=== PATIENT | male | born 1935 | race Caucasian/White ===

== ENCOUNTER 2024-04-16 17:51 | Emergency (ER) | payer OTHER, SELFPAY ==
[2024-04-16 17:52] VITALS: BMI 31.7
[2024-04-16 17:53] VITALS: BP 118/73
[2024-04-16] MEDS: NEO-SYNEPHRINE 0.5% NASAL SPRAY 2 SPRAY NASAL (20:40)
[2024-04-16 20:43] VITALS: BP 110/68
--- NOTE | 2024-04-16 21:09 | ED.GENMED ---
History of Present Illness
General
Chief Complaint: Nose Bleed
Source: patient and family
Exam Limitations: none
Time Seen by Provider: 04/16/24 20:10
Nursing documentation reviewed up to this point in time: agreed with
Travel History
Have you had any contact with someone who has COVID-19?: No
Do you have any symptoms of coronavirus? Fever > 100 degrees, chills, cough, shortness of breath, sore throat, loss of taste or smell, muscle aches, or headache?: No
History of Present Illness
History of Present Illness:
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
spontaneous nosebleed 1 hour [employer]
stopped for EMS with clamps
spontaenosuly from R nostril
dry air at home
no headache, bleeding from anywhere else, no clots
has been here clamped for a significant time and no bleeding
never had nose bleed before
does not sound like significant volume loss
Past History
Past History
ED Past Medical History: Other (bph)
Social History
Tobacco: Non-smoker
Alcohol: None
Personal:
Review of Systems
Review of Systems
Allergies reviewed?: Yes
All Other Systems: Not applicable
Phy Exam
Physical Exam
Physical Exam:
GENERAL: Alert , in no apparent distress
EYE: pupils equal and reactive
ENT: o/p clr, mmm.
right nostril anterior some dried blood but no clots; no posterior signs of bleeding
no blood in posterior pharynx
SKIN: Warm and dry, skin intact.
PSYCH: Normal and appropriate interaction.
Course
Orders/Labs/Results
Orders:
Orders
04/16/24 20:38
Oxymetazoline HCl [Afrin Nasal [place]] 30 sprays .ROUTE .STK-MED ONE
Phenylephrine 0.5% Regular Spr [Elijah-Synephrine 0.5% Nasal [place]] 1 spray .ROUTE .STK-MED ONE
04/16/24 20:40
Phenylephrine 0.5% Regular Spr [Elijah-Synephrine 0.5% Nasal [place]] 2 spray NASAL NOW STA
Vital Signs
Initial and Last Documented VS:
Initial Vital Signs
Temp Pulse Resp BP Pulse Ox
97.5 F 99 19 118/73 95
04/16/24 17:53 04/16/24 17:53 04/16/24 17:53 04/16/24 17:53 04/16/24 17:53
Last Documented Vital Signs
Temp Pulse Resp BP Pulse Ox
97.5 F 84 19 123/85 98
04/16/24 17:53 04/16/24 22:10 04/16/24 17:53 04/16/24 22:10 04/16/24 20:43
Procedures
Nosebleed
Drug treatment: Lidocaine and Neosynephrine
Treatment: local pressure applied and other (anterior balloon)
Post treatment bleeding: none- good control
MDM/Problems Addressed
Differential Diagnosis Includes:
epistaxis
MDM/Problems Addressed:
89 y/o M recently started anticoagulans after cardiac surgeries
here with sontaneous nosebleed right nostril
controlled with clamps from ems
stable vitals
well appearing
no significant blood loss
initially nothing to cauterize
neosynephrine in both nostrils and reassessed after observation
no bleeding
was leno to d/c home and then pt went to use the bathroom and started dripping right notstril
soaked cotton ball with lidocaine and then used rhinorocket 5.5
no bleeding
d/c home
*Critical Care Note
Total Time (30-74mins, 75-104mins- exclusive of procedures): Not Applicable
ED Attending Note
-
Portions of this chart may have been created with voice recognition software.� Occasional wrong word or��sound alike� substitutions may have occurred due to the inherent limitations of voice recognition software.
Discharge Plan
Departure
Patient Disposition: Home (Routine Discharge)
Date of Disposition: 04/16/24
Time of Disposition: 21:09
Patient with high blood pressure during this ER visit?: No
Condition: Fair
Covid-19: Not Applicable
Discharge Problem:
Acute anterior epistaxis
Instructions: Nosebleeds (DC)
Prescriptions:
No Action
hydrocodone-acetaminophen 5-325 mg tablet
1 tab PO Q8H PRN (Reason: Pain) Qty: 10 0RF
prednisone 20 mg tablet
20 mg PO BID 4 Days Qty: 8 0RF
Referrals:
Donavan Marte MD [Family Provider] - Follow up in 2-3 days
Chris Wills MD [Active] - Follow up in 5-7 days (ent)
Activity Restrictions/Additional Instructions:
Keep the packing in place for 2 days. You can return on Saturday or Saturday and have the packing removed. If you start bleeding with the packing in place please come into the ER. You can hold your Eliquis tonight and restart it tomorrow.
Return for fever, pain, bleeding, etc.
You may need to see an ear nose and throat doctor. Please call for an appointment
Interventions
Interventions:
*Risk Screen - Suicide Last Done: 04/16/24 17:53
*General Assessment Last Done: 04/16/24 17:53
*Neglect/Abuse Screening Last Done: 04/16/24 17:53
*Nursing Disposition Last Done: 04/16/24 22:10
ED-EENT Assessment Last Done: 04/16/24 18:41
Discharge Date and Time
Discharge Date/Time: 04/16/24 22:11
Print Language: CROATIAN
[2024-04-16 22:10] VITALS: BP 123/85
== END 2024-04-16 22:11 | disposition home or self-care (01) ==
LOC: EMR 17:51
PROVIDERS: EMERGENCY PHYSICIAN Emergency Medicine; FAMILY PHYSICIAN Family Medicine
DX: R04.0 Epistaxis (principal); N40.0 Benign prostatic hyperplasia without lower urinary tract symptoms; Z79.01 Long term (current) use of anticoagulants
CPT/HCPCS: 99282; 30901

== ENCOUNTER 2024-04-18 11:44 | Emergency (ER) | payer OTHER, SELFPAY ==
[2024-04-18 11:51] VITALS: BP 126/88
--- NOTE | 2024-04-18 13:55 | ED.GENMED ---
History of Present Illness
<Amina Sanchez PA-C - Last Filed: 04/18/24 21:20>
General
Chief Complaint: Nose Bleed
Source: patient
Exam Limitations: none
Time Seen by Provider: 04/18/24 13:29
Nursing documentation reviewed up to this point in time: agreed with
Travel History
Have you had any contact with someone who has COVID-19?: No
Do you have any symptoms of coronavirus? Fever > 100 degrees, chills, cough, shortness of breath, sore throat, loss of taste or smell, muscle aches, or headache?: No
History of Present Illness
History of Present Illness:
Patient is a 89 year old male presenting for removal of nasal packing. Patient was seen in our emergency department 2 days ago with a nosebleed where anterior nasal packing was placed. Patient was instructed to discontinue Eliquis for 1 day and
then resume. Patient presents today to remove packing.
Patient is not noticed any bleeding since packing was placed. He denies any fever, chills, headache.
Past History
<Amina Sanchez PA-C - Last Filed: 04/18/24 21:20>
Past History
ED Past Medical History: Other (bph)
Social History
Tobacco: Non-smoker
Alcohol: None
Personal:
Review of Systems
<Amina Sanchez PA-C - Last Filed: 04/18/24 21:20>
Review of Systems
Allergies reviewed?: Yes
All Other Systems: ROS reviewed and negative except as documented in HPI and ROS
Phy Exam
<Amina Sanchez PA-C - Last Filed: 04/18/24 21:20>
Physical Exam
Physical Exam:
Vitals: Patient's vital signs are stable. Afebrile
General: Patient is well appearing, no acute distress
Skin: Warm and dry, no rashes or lesions
Head: Normocephalic, atraumatic
Eyes: Sclera nonicteric. EOMs intact. No nystagmus.
Nose: Anterior nasal packing in place in right nares. No obvious active bleeding. No significant dried blood bilaterally. Left nares clear without any signs of bleeding.
Throat: Protecting airway. No blood in posterior pharynx. Uvula midline
Neck: Normal ROM, no cervical spine tenderness, no meningismus
Cardiac: Regular rate and rhythm, no murmurs.
Pulm: Normal respiratory effort, no wheezes, rales, rhonchi heard on exam.
Abdomen: No abdominal tenderness.
Extremities: No evidence of cyanosis or edema
Neuro: AAOx3. CN II-XII intact. No focal neurologic deficits.
Psychiatric: Normal affect.
Course
<Amina Sanchez PA-C - Last Filed: 04/18/24 21:20>
Vital Signs
Initial and Last Documented VS:
Initial Vital Signs
Temp Pulse Resp BP Pulse Ox
98.1 F 71 16 126/88 98
04/18/24 11:51 04/18/24 11:51 04/18/24 11:51 04/18/24 11:51 04/18/24 11:51
Last Documented Vital Signs
Temp Pulse Resp BP Pulse Ox
98.1 F 71 16 126/88 98
04/18/24 11:51 04/18/24 11:51 04/18/24 11:51 04/18/24 11:51 04/18/24 11:51
<Geovany Marquez DO - Last Filed: 04/18/24 15:30>
Vital Signs
Initial and Last Documented VS:
Initial Vital Signs
Temp Pulse Resp BP Pulse Ox
98.1 F 71 16 126/88 98
04/18/24 11:51 04/18/24 11:51 04/18/24 11:51 04/18/24 11:51 04/18/24 11:51
Last Documented Vital Signs
Temp Pulse Resp BP Pulse Ox
98.1 F 71 16 126/88 98
04/18/24 11:51 04/18/24 11:51 04/18/24 11:51 04/18/24 11:51 04/18/24 11:51
<Amina Sanchez PA-C - Last Filed: 04/18/24 21:20>
MDM/Problems Addressed
Differential Diagnosis Includes:
Not limited to: Anterior nosebleed
MDM/Problems Addressed:
89-year-old male presents for removal of anterior nasal packing placed 2 days ago in the emergency department. Patient denies any repeat bleeding. Patient was instructed to stop Eliquis for 1 day and has yet to resume. Vital stable. Physical
exam as above. Anterior nasal packing was removed without any difficulties. No evidence of rebleeding at this time. No significant dried blood or clots noted to bilateral nares. No posterior signs of bleeding. Patient tolerated procedure well.
Instructed patient to restart Eliquis and follow-up with cardiology prior to making any adjustments to Eliquis dosing.
Patient was monitored in emergency department that any evidence of rebleed. Stable for discharge with primary care follow-up. Return precautions discussed. Recommended keeping bilateral nares moist, replete precautions. Patient and patient's
daughter comfortable with plan. All questions answered.
Chronic conditions affecting care:
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
Acute Exacerbation and/or Progression of Chronic Illness:
N/A
<Amina Sanchez PA-C - Last Filed: 04/18/24 21:20>
*Pulse Oximetry
Patient hypoxic: no
*EKG
Interpreted by ED Provider?: NA
*Tab Cutter Interpretation
Rate: Tab Cutter- N/A
*Critical Care Note
Total Time (30-74mins, 75-104mins- exclusive of procedures): Not Applicable
ED Attending Note
<Amina Sanchez PA-C - Last Filed: 04/18/24 21:20>
-
Portions of this chart may have been created with voice recognition software.� Occasional wrong word or��sound alike� substitutions may have occurred due to the inherent limitations of voice recognition software.
<Geovany Marquez DO - Last Filed: 04/18/24 15:30>
ED Attending Note
Patient seen and examined by attending physician: Yes
I performed the substantive portion of visit, reviewed & personally made and approve the management plan that is documented in note by myself or BHARAT.: Yes
ED Attending Note:
Packing removed, no further bleeding
Discharge Plan
Departure
Patient Disposition: Home (Routine Discharge)
Date of Disposition: 04/18/24
Time of Disposition: 13:57
Patient with high blood pressure during this ER visit?: No
Condition: Good
Covid-19: Not Applicable
Discharge Problem:
Encounter for removal of nasal packing
Instructions: Nosebleeds (DC)
Prescriptions:
No Action
hydrocodone-acetaminophen 5-325 mg tablet
1 tab PO Q8H PRN (Reason: Pain) Qty: 10 0RF
prednisone 20 mg tablet
20 mg PO BID 4 Days Qty: 8 0RF
Referrals:
Judah Neri MD [Active] - As needed
Bob Gibbs MD [Family Provider] -
Activity Restrictions/Additional Instructions:
RETURN TO THE EMERGENCY DEPARTMENT WITH ANY RECURRENT NOSEBLEEDS, DIZZINESS, LIGHTHEADEDNESS, CHEST PAIN, SHORTNESS OF BREATH, WORSENING IN CURRENT SYMPTOMS OR ANY OTHER CONCERNS
-You should continue to keep nose moist over the next few days. You can use a small amount of vaseline or saline nasal spray. You can try a humidifier at home to keep air moist. Avoid putting anything in nose over the next few days. You should avoid
any nose blowing.
-If any rebleeding occurs - apply direct pressure. Return to the emergency department with any significant nose bleed that you cannot get to stop at home.
-As discussed - you should restart your eliquis as prescribed. You should speak to your rating officer prior to making any adjustments to your eliquis dosing.
-If nosebleeds persist - you may need to follow-up with an ENT specialist.
Interventions
Interventions:
*Nursing Disposition Last Done: 04/18/24 14:39
ED-EENT Assessment Last Done: 04/18/24 12:46
Discharge Date and Time
Discharge Date/Time: 04/18/24 14:40
Print Language: PALESTINIAN
== END 2024-04-18 14:40 | disposition home or self-care (01) ==
LOC: EMR 11:44
PROVIDERS: EMERGENCY PHYSICIAN Emergency Medicine; FAMILY PHYSICIAN Family Medicine
DX: Z48.00 Encounter for change or removal of nonsurgical wound dressing (principal); R04.0 Epistaxis
CPT/HCPCS: 99281

== ENCOUNTER 2024-06-05 13:29 | Emergency (ER) | payer OTHER, SELFPAY ==
[2024-06-05 13:33] VITALS: BP 124/81
--- NOTE | 2024-06-05 15:38 | ED.GENMED ---
History of Present Illness
General
Chief Complaint: Nose Bleed
Source: patient
Exam Limitations: none
Time Seen by Provider: 06/05/24 14:22
Nursing documentation reviewed up to this point in time: agreed with
History of Present Illness
History of Present Illness:
89-year-old male with a past medical history as documented notable for A-fib on Eliquis who presents to the emergency room for evaluation of epistaxis. Patient reports that he was laying down to rest at around noon and when he woke up he noticed
some blood coming from his right nostril. He says that he was not able to stop the bleeding and so he came to the emergency to be assessed. He says he has had similar episodes of epistaxis in the past. He denies any trauma. He denies any other
complaints.
Past History
Past History
ED Past Medical History: Other (bph)
Social History
Tobacco: Non-smoker
Alcohol: None
Personal:
Review of Systems
Review of Systems
All Other Systems: ROS reviewed and negative except as documented in HPI and ROS
EENT: Reports other (Epistaxis)
Phy Exam
Physical Exam
Physical Exam:
General: Well appearing and non-toxic
HEENT: protecting airway; no posterior bleeding/blood in the oropharynx; patient has some steady oozing of blood from the nasal septum in the right nare, no bleeding in the left nare
Neck: appears supple
CV: No evidence of cyanosis
Resp: No accessory muscle use
Abd: Non-distended
Extremities: No deformities
Neuro: Alert
Psych: Normal affect
Skin: Intact
Scores
Heart Failure Risk
Heart Failure Risk Score: Not Applicable
Heart Score for Chest Pain Patients
STEMI patient?: Not applicable
Withdrawal Assessment of Alcohol
Withdrawal Assessment Completed?: Not applicable
Course
Vital Signs
Initial and Last Documented VS:
Initial Vital Signs
Temp Pulse Resp BP Pulse Ox
36.7 C 75 21 124/81 95
06/05/24 13:33 06/05/24 13:33 06/05/24 13:33 06/05/24 13:33 06/05/24 13:33
Last Documented Vital Signs
Temp Pulse Resp BP Pulse Ox
36.7 C 75 21 124/81 95
06/05/24 13:33 06/05/24 13:33 06/05/24 13:33 06/05/24 13:33 06/05/24 13:33
Procedures
Nosebleed
Drug treatment: Epinephrine
Treatment: Silver nitrate cautery
Post treatment bleeding: none- good control
MDM/Problems Addressed
Differential Diagnosis Includes:
Epistaxis
MDM/Problems Addressed:
89-year-old male who is on Eliquis presents to the emergency room with acute right anterior epistaxis. Focus of bleeding on the right nasal septum visualized. Applied epinephrine soaked cotton ball with direct pressure for pretreatment with
control of bleeding; subsequently cauterized with silver nitrate with continued hemostasis. Will observe here in the emergency room for rebleeding and if he remains hemostatic plan to discharge.
Chronic conditions affecting care:
A-fib on Eliquis complicates epistaxis
*Pulse Oximetry
Patient hypoxic: no
*Critical Care Note
Total Time (30-74mins, 75-104mins- exclusive of procedures): Not Applicable
Data Reviewed
Source: patient and records
ED Attending Note
-
Portions of this chart may have been created with voice recognition software.� Occasional wrong word or��sound alike� substitutions may have occurred due to the inherent limitations of voice recognition software.
Discharge Plan
Departure
Patient Disposition: Home (Routine Discharge)
Date of Disposition: 06/05/24
Time of Disposition: 15:52
Patient with high blood pressure during this ER visit?: No
Discharge Problem:
Acute anterior epistaxis
Instructions: Nosebleeds (DC)
Prescriptions:
No Action
hydrocodone-acetaminophen 5-325 mg tablet
1 tab PO Q8H PRN (Reason: Pain) Qty: 10 0RF
prednisone 20 mg tablet
20 mg PO BID 4 Days Qty: 8 0RF
Referrals:
Bob Gibbs MD [Family Provider] -
Chris Wills MD [Active] - As needed (ENT--schedule appointment as needed for recurrent nosebleeds)
Activity Restrictions/Additional Instructions:
Thank you for visiting the Emergency Department at [facility].
1. Please schedule a follow up appointment as directed. Call first thing tomorrow morning to make an appointment.
2. If indicated, please take your medications as instructed and indicated on discharge paperwork.
3. If any of your symptoms do not improve, or persist, or become more severe within 6-12 hours, please return to the emergency department for further care.
4. Please return to the emergency department if you develop a headache, neck pain/stiffness, fever greater than 100.4F, chest pain, shortness of breath, persistent nausea, vomiting, slurred speech, difficulty walking, numbness/tingling, weakness,
signs of infection or any other symptoms that are worrisome to you.
Please call [phone] if you have any questions.
Interventions
Interventions:
*Risk Screen - Suicide Last Done: 06/05/24 13:35
*Neglect/Abuse Screening Last Done: 06/05/24 13:35
ED- Fall Risk Assessment Last Done: 06/05/24 13:37
ED-EENT Assessment Last Done: 06/05/24 13:36
Discharge Date and Time
Print Language: PUERTO RICAN
[2024-06-05 16:00] VITALS: BP 104/62
== END 2024-06-05 16:43 | disposition home or self-care (01) ==
LOC: EMR 13:29
PROVIDERS: EMERGENCY PHYSICIAN Emergency Medicine; FAMILY PHYSICIAN Family Medicine
DX: R04.0 Epistaxis (principal); I48.91 Unspecified atrial fibrillation; Z79.01 Long term (current) use of anticoagulants
CPT/HCPCS: 99282; 30901

== ENCOUNTER 2024-06-08 07:56 | Emergency (ER) | payer OTHER, SELFPAY ==
[2024-06-08 07:58] VITALS: BP 143/81
[2024-06-08 08:09] VITALS: BP 137/87; BMI 30.1
--- NOTE | 2024-06-08 08:19 | EDRN ---
provider currently at the pts bedside
--- NOTE | 2024-06-08 08:22 | ED.GENMED ---
History of Present Illness
General
Chief Complaint: Nose Bleed
Source: patient
Time Seen by Provider: 06/08/24 08:08
History of Present Illness
History of Present Illness:
89yoM with a history of atrial fibrillation on Eliquis presenting for evaluation of epistaxis. Patient had a history of frequent nosebleeds and was last seen in the ED 3 days ago for the same. He underwent cautery with silver nitrate at that visit.
He started with right sided epistaxis around 5am this morning. He placed cotton padding into his right nare. No active bleeding on arrival. He has no complaints currently. He denies any dizziness, syncope, shortness of breath, fatigue.
Past History
Past History
ED Past Medical History: Other (bph)
Social History
Tobacco: Non-smoker
Alcohol: None
Personal:
Phy Exam
General Physical Exam
General Presentation: well appearing and no apparent distress
General age: appears stated age
General Skin: warm and dry
General Habitus: elderly
ENT Exam
ENT Exam: pharynx normal and other (No active bleeding. Prior cautery site noted to R anterior nare. There is a small area of redness just inferior to this which appears to be the source of bleeding. No blood in posterior oropharynx. )
Skin Exam
Skin Exam: normal color and warm/dry
Psychiatric Exam
Psychiatric Exam: normal mood/affect
Course
Orders/Labs/Results
Orders:
Orders
06/08/24 08:23
Oxymetazoline HCl [Afrin Nasal [place]] See Dose Instructions NASAL BID
Vital Signs
Initial and Last Documented VS:
Initial Vital Signs
Temp Pulse Resp BP Pulse Ox
98.1 F 89 18 143/81 95
06/08/24 07:58 06/08/24 07:58 06/08/24 07:58 06/08/24 07:58 06/08/24 07:58
Last Documented Vital Signs
Temp Pulse Resp BP Pulse Ox
98.5 F 78 16 137/87 95
06/08/24 08:09 06/08/24 08:09 06/08/24 08:09 06/08/24 08:09 06/08/24 08:30
Procedures
Nosebleed
Drug treatment: other (Oxymetazoline)
Treatment: Silver nitrate cautery
Post treatment bleeding: none- good control
MDM/Problems Addressed
Differential Diagnosis Includes:
89yoM here with R sided epistaxis that began this morning. Seen in the ED recently for the same. Otherwise asymptomatic. He is afebrile and hemodynamically stable. He is well appearing in no distress. No active bleeding on exam. There is a small
area of redness inferior to the prior area of cauterization that appears to be the source of the bleeding. No clinical evidence of posterior epistaxis.
*Critical Care Note
Total Time (30-74mins, 75-104mins- exclusive of procedures): Not Applicable
Update Note
Update Note:
Area of recent bleeding was cauterized with silver nitrate. Afrin nasal spray applied. He was observed for an additional hour without any further bleeding. He is stable for discharge. Advised saline nasal spray and humidifier to prevent dryness.
Advised f/u with ENT. ED return precautions discussed. He expressed understanding and is agreeable to plan. He was discharged in stable condition.
ED Attending Note
-
Portions of this chart may have been created with voice recognition software.� Occasional wrong word or��sound alike� substitutions may have occurred due to the inherent limitations of voice recognition software.
Discharge Plan
Departure
Patient Disposition: Home (Routine Discharge)
Date of Disposition: 06/08/24
Time of Disposition: 09:14
Patient with high blood pressure during this ER visit?: No
Discharge Problem:
Right-sided epistaxis
Instructions: Nosebleeds (DC)
Referrals:
Rafa Ibarra MD [Active] -
UNKNOWN - PT DOES,NOT KNOW [Family Provider] -
Activity Restrictions/Additional Instructions:
Use [place]/saline nasal spray 2x daily to help prevent dryness. Continue using humidifier at nighttime.
If bleeding recurs, hold direct pressure for 20 minutes. If bleeding does not stop after 20 minutes, return to the ER for evaluation.
Please follow-up with an ENT specialist.
Interventions
Interventions:
*Risk Screen - Suicide Last Done: 06/08/24 07:58
*General Assessment Last Done: 06/08/24 07:58
*Neglect/Abuse Screening Last Done: 06/08/24 07:58
ED- Fall Risk Assessment Last Done: 06/08/24 08:09
*ED COVID-19 Vaccine History Last Done: 06/08/24 07:58
*Nursing Disposition Last Done: 06/08/24 09:26
ED-EENT Assessment Last Done: 06/08/24 08:09
Discharge Date and Time
Discharge Date/Time: 06/08/24 09:32
Print Language: PUERTO RICAN
[2024-06-08] MEDS: AFRIN NASAL SPRAY 30 SPRAYS NASAL (08:38)
== END 2024-06-08 09:32 | disposition home or self-care (01) ==
LOC: EMR 07:56
PROVIDERS: EMERGENCY PHYSICIAN Emergency Medicine
DX: R04.0 Epistaxis (principal); W44.F9XA Other object of natural or organic material, entering into or through a natural orifice, initial encounter; I48.91 Unspecified atrial fibrillation; N40.0 Benign prostatic hyperplasia without lower urinary tract symptoms; Z79.01 Long term (current) use of anticoagulants
CPT/HCPCS: 99282; 30901